=== PATIENT | female | born 1955 | race Caucasian/White ===

== ENCOUNTER 2018-09-17 18:51 | Emergency (ER) | payer MEDICAID ==
[~2018-09-17] VITALS: Ht 167.6 cm; Wt 91.6 kg
[~2018-09-17 18:51] MED LIST: METFORMIN500 MG PO; [UNRECOGNIZED DRUG - SUPPLY]
[2018-09-17 19:00] VITALS: Ht 167.6 cm; Wt 91.6 kg
[2018-09-17 21:01] VITALS: BP 193/106
== END 2018-09-17 21:01 | disposition home or self-care (01) ==
LOC: ED 18:51
DX: S76.911A Strain of unspecified muscles, fascia and tendons at thigh level, right thigh, initial encounter (principal); J45.909 Unspecified asthma, uncomplicated; I10 Essential (primary) hypertension; E11.9 Type 2 diabetes mellitus without complications; E78.00 Pure hypercholesterolemia, unspecified; X58.XXXA Exposure to other specified factors, initial encounter; Y93.89 Activity, other specified; Y92.89 Other specified places as the place of occurrence of the external cause; Y99.8 Other external cause status
CPT/HCPCS: 82962; J1885; Q0092

== ENCOUNTER 2019-03-04 01:56 | Inpatient (IN) | payer MEDICAID ==
[~2019-03-04] VITALS: Ht 167.6 cm; Wt 85.3 kg
--- NOTE | 2019-03-04 02:53 | NUR ---
PATIENT SEEN WITH COMPLAINT OF ABDOMINAL PAIN X 3 DAYS. SUPERVISOR RUBBER COVERING AT THE BEDSIDE DRAWING BLOOD.
[2019-03-04 03:01] LABS: BASOPHIL % 0.5 % (0-2); PLATELET COUNT 349 x10^3mcL (130-400)
[2019-03-04 03:02] LABS: RED CELL DISTRIBUTION WIDTH 15.7 % (11.5-14.5)
--- NOTE | 2019-03-04 03:19 | NUR ---
SALINE LOCK INSERTED, PATIENT MEDICATED WITH ZOFRAN AND TORADOL. FLUID BOLUS IS INFUSING.
[2019-03-04 04:00] LABS: CALCIUM 9.6 mg/dL (8.5-10.1); CARBON DIOXIDE 20.9 mmol/L (21-32); CREATININE SERUM 3.1 mg/dL (0.6-1.0); POTASSIUM SERUM 5.1 mmol/L (3.5-5.1)
[2019-03-04 04:04] LABS: ALBUMIN 2.9 g/dL (3.4-5.0); BILIRUBIN TOTAL 0.12 mg/dL (0.20-1.00); TOTAL PROTEIN, SERUM 7.1 g/dL (6.4-8.2)
--- NOTE | 2019-03-04 04:09 | NUR ---
PATIENT AMBULATED TO THE BATHROOM. AND BACK TO THE ROOM. NO COMPLAINT .
[2019-03-04] MEDS ORDERED: NOR10 PO (04:49)
[2019-03-04] MEDS ORDERED: D-20001 TAB PO (04:50)
[2019-03-04] MEDS ORDERED: LIPI20 PO (04:50)
[2019-03-04] MEDS ORDERED: ZESTRIL40 MG PO (04:51)
[2019-03-04] MEDS ORDERED: TOPROL XL25 MG PO (04:51)
[2019-03-04 05:02] LABS: microscopic required? YES; urine erythrocyte 1+ (NEGATIVE)
--- NOTE | 2019-03-04 05:02 | NUR ---
REPORT WAS GIVEN TO JHONNY. PATIENT TRANSPORTED TO ROOM 204B.
--- NOTE | 2019-03-04 05:15 | NUR ---
PT TRANSFERRED TO MED/SURG BED 204B VIA WHEELCHAIR WITH EMT WILIAM AT PT SIDE. PT A&OX4,NO ACUTE DISTRESS NOTED, RESP EVEN AND UNLABORED, TRANSFERRED WITHOUT INCIDENCE.
[2019-03-04 05:26] VITALS: BP 168/81
--- NOTE | 2019-03-04 05:42 | NUR ---
ADMITTED A 63 YEARS OLD FEMALE AWAKE, ALERT AND ORIENTED CAME IN VIA WHEELCHAIR ACCOMPANIED BY ER NURSE AND GRANDSON. WITH C/O GENERALIZED ABDOMINAL PAIN ,DYSURIA AND BILATERAL EYE PAIN. MEDICATED INER WITH TORADOL 30MG IVP AND ROCEPHIN IVPB GIVEN. KEPT IN COMFORT AND ORIENTED PATIEN TTO ROOM AND DEVICES. WITH ADMISSION ORDERS AND TO CARRY OUT. WILL ENDORSE CONTINOUS CARE TO AM SHIFT.
[2019-03-04 06:48] LABS: PHOSPHOROUS 5.3 mg/dL (2.5-4.9)
[2019-03-04 06:53] LABS: CHOLESTEROL/HDL RATIO 4.8
--- NOTE | 2019-03-04 07:30 | NUR ---
US STRING CUTTER AT BEDSIDE FOR US RENAL.
[2019-03-04 08:00] LABS: T3 TOTAL 1.21 ng/mL
[2019-03-04 08:48] LABS: FREE T4 1.07 ng/dL (0.76-1.46); FREE THYROXINE INDEX 2.2 ug/dL (1.4-4.5); T4(THYROXINE) 5.9 ug/dL (4.7-13.3)
[2019-03-04 08:54] VITALS: BP 115/73
--- NOTE | 2019-03-04 10:00 | NUR ---
ADMINISTERED MEDICATIONS PER MAR, PATIENT FAMILY AT BEDSIDE, CALL LIGHT WITHIN REACH
--- NOTE | 2019-03-04 12:53 | NUR ---
Discount pharmacy card and list to low cost medical clinics given to patient by Alex Solis.
--- NOTE | 2019-03-04 14:43 | NUR ---
LAB CONTACTED STAFF TO REPORT THAT PATIENT MRSA SWAB WAS NOT RECEIVED. RESWABED PATIENT AT THIS TIME TO SEND TO LAB.
[2019-03-04 15:11] LABS: CREATININE UR 37.6 mg/dL
--- NOTE | 2019-03-04 16:19 | NUR ---
ADMNISTERED MEDICATION PER NOV. BS ERSULT WAS 120 NO COVERAGE NEEDED PER SLIDING SCALE
[2019-03-04 16:41] VITALS: BP 156/75
--- NOTE | 2019-03-04 19:51 | NUR ---
PT RECIEVED AAO [place] KORE[place] SPEAKING ONLY WITH FAMILY AT THE BEDSIDE,REG RESP NO SOB V/S STABLE,IV INFUSING WELL WITH THE SITE PATENT AND INTACT,KEPT CLEAN AND DRY TO TOUCH,MADE COMFORTABLE IN BED,CALL LIGHT EASY REACHED AND WILL CONTINUE TO MONITOR.
[2019-03-04 20:42] VITALS: BP 148/68
[2019-03-04 23:20] VITALS: Ht 167.6 cm; Wt 85.3 kg
--- NOTE | 2019-03-05 01:12 | NUR ---
PT SLEEPING SOUNDLY AND WILL CONTINUE TO MONITOR.
[2019-03-05 05:32] VITALS: BP 166/70
[2019-03-05 06:22] LABS: BASOPHIL % 0.4 % (0-2); PLATELET COUNT 300 x10^3mcL (130-400)
--- NOTE | 2019-03-05 06:23 | NUR ---
PT HAD A RESTING NIGHT NO CHANGE AT THIS TIME,WILL CONTINUE TO MONITOR.
[2019-03-05 06:46] LABS: CALCIUM 8.7 mg/dL (8.5-10.1); CARBON DIOXIDE 16.8 mmol/L (21-32); CREATININE SERUM 2.7 mg/dL (0.6-1.0); PHOSPHOROUS 5.7 mg/dL (2.5-4.9)
[2019-03-05 06:54] LABS: IRON 18 ug/dL (50-170); TOTAL IRON BINDING CAPACITY 225 ug/dL (250-450)
--- NOTE | 2019-03-05 07:11 | NUR ---
K+ LEVEL THIS AM IS 6.0 DR [place] HAPPEN TO BE ON THE FLOOR MADE AWARE OF THAT RESULT WELL THE AM NURSE WAS,WILL CONTINUE TO MONITOR.
[2019-03-05 07:20] LABS: RED CELL DISTRIBUTION WIDTH 16.3 % (11.5-14.5)
--- NOTE | 2019-03-05 07:30 | NUR ---
RECEIVED HAND OFF REPORT FROM RANDEE PAEZ. PATIENT FOUND RESTING IN BED OPENED EYES WHEN I ENTERED THE ROOM. FAMILY AT BEDSIDE, PATIENT NO COMPLAINING OF PAIN OR DISCOMFORT, IV TO RIGHT HAND INTACT WITH NS @100. [facility] NURSE REPORTED POTASSIUM VALUE OR 6.[address] SULTANA AT NURSES STATION. CALL LIGHT WITHIN REACH OF PATIENT
--- NOTE | 2019-03-05 08:18 | NUR ---
SPOKE WITH PHARMACIST ABOUT VELTRESSA ORDER. PHARAMCIST STATED TO GIVE VALTRESSA AND IV MEDICAIONS BUT HOLD ANY PO MEDICATIONS UNTIL 3 HOURS AFTER VELTRESSA HAS BEEN ADMINISTERED. ADMINISTERED MEDICATION TO PATIENT WITH NO INCIDENT. PATIENT CALL LIGHT WITHIN REACH
[2019-03-05 09:42] VITALS: BP 152/70
--- NOTE | 2019-03-05 12:00 | NUR ---
ADMINISTERED MORNING MEDICATIONS. DELAYED DUE TO POTASSIUM BEING 6.0 AND NEEDING VALTASSA. PER PHARAMCIST PO MEDICATIONS COULD NOT BE GIVEN WITHIN 3 HOURS.
--- NOTE | 2019-03-05 17:10 | NUR ---
FOUND PATIENT SITTING UP TALKING WITH FAMILY MEMBERS. PATIENT DENIES PAIN, STATES SHE HAS NOT HAD A BOWEL MOVEMENT FOR 5 DAYS AND CAN HEAR AND FEEL HER INTESTINES MOVING. PATIENT DOES HAVE ACTIVE BOWEL SOUNDS. DENEIS PAINFUL URINATION. THERE WAS OUTSIDE FOOD AT BEDSIDE, AND PATIENT ADMITS TO EATING THE FOOD HER FAMILY BROUGHT HER. EDUCATED PATIENT THAT WITHOUT A PHYSCIAN ORDER, PATIENT SHOULD NOT BE EATING OUTSIDE FOOD, ESPECIALLY DUE TO HER DIABETES. PATIENT VERBALIZED UNDERSTANDING. NO OTHER COMPLAINTS AT THIS TIME, CALL LIGHT WITHIN REACH
[2019-03-05 17:11] VITALS: BP 142/65
--- NOTE | 2019-03-05 19:36 | NUR ---
RECEIVED PT FROM DAY SHIFT RN. PT AAOX4 DENIES HEADACHE OR DIZZINESS. BREATHING EVEN AND UNLABORED WITH NO SOB NOTED. MED SURG PT DENIES CHEST PAIN OR PRESSURE. IV RH PATENT, INFUSING WELL. PT AMBULATORY. ABD DISTENDED, ACTIVE BOWEL SOUNDS, DENIES DISCOMFORT AT THIS TIME, DENIES N/V. CALL BUTTON WITHIN REACH. NO SIGNS OF DISTRESS NOTED. SAFETY PRECAUTIONS IN PLACE. WILL CONTINUE TO MONITOR.
[2019-03-05 20:58] VITALS: BP 157/64
--- NOTE | 2019-03-05 21:48 | NUR ---
PT REPORTED HAVING A HEADACHE, MEDICATED PER EMAR. WILL MONITOR.
--- NOTE | 2019-03-05 23:30 | NUR ---
DR JESUS MADE AWARE K 6.0, PT HAS NOT HAVE A BM. PER DR JESUS TO WAIT FOR MORNING LABS TO RECHECK POTASSIUM LEVEL.
--- NOTE | 2019-03-06 00:24 | NUR ---
PT RESTING, BREATHING EVEN AND UNLABORED. NO SIGNS OF DISTRESS NOTED. IV PATENT, INFUSING WELL. CALL BUTTON WITHIN REACH. WILL CONTINUE TO MONITOR.
--- NOTE | 2019-03-06 03:25 | NUR ---
PT RESTING, BREATHING EVEN AND UNLABORED. NO SIGNS OF DISTRESS NOTED. CALL BUTTON WITHIN REACH. SAFETY PRECAUTIONS IN PLACE. DAUGHTER AT BEDSIDE. WILL CONTINUE TO MONITOR.
--- NOTE | 2019-03-06 06:16 | NUR ---
PT SLEPT MOST OF THE NIGHT WITH NO SIGNS OF DISTRESS. BREATHING EVEN AND UNLABORED. IV PATENT, INFUSING WELL WITH NO SIGNS OF INFILTRATION NOTED. MEDICATED PER EMAR. PT DENIES DISCOMFORT OR DISTRESS. CALL BUTTON WITHIN REACH. SAFETY PRECAUTIONS IN PLACE. WILL CONTINUE TO MONITOR AND ENDORSE CARE TO DAY SHIFT RN.
[2019-03-06 06:18] VITALS: BP 144/78
[2019-03-06 06:44] LABS: BASOPHIL % 0.6 % (0-2); PLATELET COUNT 299 x10^3mcL (130-400)
[2019-03-06 06:48] LABS: CALCIUM 8.2 mg/dL (8.5-10.1); CARBON DIOXIDE 19.5 mmol/L (21-32); CREATININE SERUM 2.5 mg/dL (0.6-1.0); MAGNESIUM 1.8 mg/dL (1.8-2.4); PHOSPHOROUS 4.7 mg/dL (2.5-4.9); POTASSIUM SERUM 5.5 mmol/L (3.5-5.1)
[2019-03-06 07:27] LABS: RED CELL DISTRIBUTION WIDTH 16.4 % (11.5-14.5)
--- NOTE | 2019-03-06 07:35 | NUR ---
PT BREATHING EVEN AND UNLABORED. NO SIGNS OF DISTRESS NOTED. ENDORSED CARE TO DAY SHIFT RN, ALL QUESTIONS ADDRESSED.
--- NOTE | 2019-03-06 07:35 | NUR ---
SBAR RECEIVED AND PATIENT SEEN ASLEEP. NS AT 100CC/ HR INFUSING PERIPHERALLY. DAUGHTER AT BEDSIDE. BED LOW AND LOCKED.
[2019-03-06 08:06] LABS: microalbumin:creatinine ratio 2742.8 (0.0-30.0)
[2019-03-06 09:00] VITALS: BP 152/68
--- NOTE | 2019-03-06 12:13 | NUR ---
DAUGHTER VISITING. PATIENT NOT IN ANY DISTRESS. CALL [place] WITHIN REACH.
[2019-03-06 13:11] VITALS: BP 152/68
--- NOTE | 2019-03-06 14:47 | NUR ---
PLACED ON CONTACT ISOLATION PER PROTOCOL BASED ON URINE CULTURE RESULTS.
[2019-03-06 17:30] VITALS: BP 169/77
--- NOTE | 2019-03-06 18:00 | NUR ---
GIVEN DULCOLAX PO FOR CONSTIPATION. GOOD RESULT.
--- NOTE | 2019-03-06 19:26 | NUR ---
HANDOFF REPORT GIVEN TO BRENDA BEE.
--- NOTE | 2019-03-06 19:35 | NUR ---
RECEIVED PT FROM DAY SHIFT RN. PT AAOX4 DENIES HEADACHE OR DIZZINESS. BREATHING EVEN AND UNLABORED WITH NO SOB NOTED. MED SURG PT DENIES CHEST PAIN OR PRESSURE. IV RH PATENT, INFUSING WELL. PT AMBULATORY. ABD DISTENDED, ACTIVE BOWEL SOUNDS, DENIES DISCOMFORT AT THIS TIME, DENIES N/V. CALL BUTTON WITHIN REACH. NO SIGNS OF DISTRESS NOTED. SAFETY PRECAUTIONS IN PLACE. CONTACT ISOLATION. DAUGHTER AT BEDSIDE. WILL CONTINUE TO MONITOR.
--- NOTE | 2019-03-06 20:54 | NUR ---
PT REPORTED HAVING A HEADACHE, MEDICATED PER EMAR. WILL CONTINUE TO MONITOR.
[2019-03-06 22:45] VITALS: BP 160/67
--- NOTE | 2019-03-06 22:50 | NUR ---
PER DR THELMA ZULETA TO DISCHARGE PATIENT IF POTASSIUM LEVEL IS NORMAL IN THE MORNING.
--- NOTE | 2019-03-07 | NUR ---
PT BREATHING EVEN AND UNLABORED WITH NO SOB NOTED. NO SIGNS OF ACUTE DISTRESS NOTED. DAUGHTER AT BEDSIDE. CALL BUTTON WITHIN REACH. WILL CONTINUE TO MONITOR.
--- NOTE | 2019-03-07 02:12 | NUR ---
ROUNDS MADE. PT BREATHING EVEN AND UNLABORED WITH NO SOB NOTED. NO SIGNS OF ACUTE DISTRESS NOTED. DAUGHTER AT BEDSIDE. CALL BUTTON WITHIN REACH. WILL CONTINUE TO MONITOR.
[2019-03-07 06:05] VITALS: BP 120/66
[2019-03-07 06:07] LABS: BASOPHIL % 0.3 % (0-2); PLATELET COUNT 317 x10^3mcL (130-400)
--- NOTE | 2019-03-07 06:18 | NUR ---
PT BREATHING EVEN AND UNLABORED. PT SLEPT MOST OF THE NIGHT WITH NO SIGNS OF DISTRESS. PT AMBULATORY WITH BRP. MEDICATED PER EMAR. PT DENIES ANY PAIN. NO SIGNS OF ACUTE DISTRESS NOTED. CALL BUTTON WITHIN REACH. WILL CONTINUE TO MONITOR AND ENDORSE CARE TO DAY SHIFT RN.
[2019-03-07 06:19] LABS: CALCIUM 8.5 mg/dL (8.5-10.1); CARBON DIOXIDE 19.8 mmol/L (21-32); CREATININE SERUM 2.3 mg/dL (0.6-1.0); POTASSIUM SERUM 5.3 mmol/L (3.5-5.1)
[2019-03-07 07:02] LABS: RED CELL DISTRIBUTION WIDTH 16.4 % (11.5-14.5)
--- NOTE | 2019-03-07 07:35 | NUR ---
PT RESTING, BREATHING EVEN AND UNLABORED. NO SIGNS OF DISTRESS NOTED. ENDORSED CARE TO DAY SHIFT RN, ALL QUESTIONS ADDRESSED.
[2019-03-07] MEDS ORDERED: NITROFURANTOIN100 MG PO (07:54)
--- NOTE | 2019-03-07 07:55 | NUR ---
BAM POLK AWARE OF PATIENT'S POTASSIUM LEVEL = 5.3 TODAY. ORDER OF DISCHARGE TO HOME TODAY IF OK WITH MARINE FIRER.
--- NOTE | 2019-03-07 08:00 | NUR ---
RECEIVED PATIENT A/A/OX3; ITALIAN SPEAKING. NO RESP DISTRESS ON RA. DENIED CHEST PAIN. OBESITY. FINISHED 100% OF RENAL DIET BRAKFAST. VOID VIA BRP. DENIED DYSURIA NOW. GENERAL WEAKNESS. IVHL'D TO R HAND W/ 24G NEEDLE. DENIED PAIN. CALL LIGHT IN REACH. DAUGHTERS AT BED SIDE.
[2019-03-07 14:36] VITALS: BP 152/68
[2019-03-07] MEDS ORDERED: METOPROLOL TART25 M1 PO (14:41)
--- NOTE | 2019-03-07 15:00 | NUR ---
DR. Pablo HERNANDEZ CAME TO SEE PATIENT. DIETITION CONSULTATION GIVEN FOR RENAL/CCHO DIET. VELTASSA 8.5GM PO GIVEN FOR POTASSIUM 5.3 TODAY. ORDER OF TO FOLLOW UP WITH DR HERNANDEZ IN 2 WEEKS ADDED TO DISCHARGE INSTRUCTION.
--- NOTE | 2019-03-07 15:15 | NUR ---
Nutrition Note: Diet education provided on Low and high food sources of potassium, portion control, high fiber foods, low sodium and diabetic diet. [facility] handout on 'Acute Renal Injury' that included potassium food sources was provided both in Romanian and Uzbek. Patient' s daughter helped with maltese translation. Patient verbalized understanding and did not have any questions at this time. Per RN Odette pateint is to be D/C today.
--- NOTE | 2019-03-07 16:25 | NUR ---
D/C TO HOME PER ORDER. INSTRUCTION GIVEN. IV D/C'D. CONDITION STABLE.
== END 2019-03-07 16:25 | disposition home or self-care (01) | DRG 469 ==
LOC: ED 01:56 → MU 04:27
PROVIDERS: Emergency Medicine; Internal Medicine; ADMIT Internal Medicine
DX: N17.0 Acute kidney failure with tubular necrosis (principal); E11.22 Type 2 diabetes mellitus with diabetic chronic kidney disease; E44.0 Moderate protein-calorie malnutrition; E11.3599 Type 2 diabetes mellitus with proliferative diabetic retinopathy without macular edema, unspecified eye; N39.0 Urinary tract infection, site not specified; E87.5 Hyperkalemia; N28.1 Cyst of kidney, acquired; I12.9 Hypertensive chronic kidney disease with stage 1 through stage 4 chronic kidney disease, or unspecified chronic kidney disease; N18.4 Chronic kidney disease, stage 4 (severe); R80.9 Proteinuria, unspecified; D64.9 Anemia, unspecified; E78.5 Hyperlipidemia, unspecified; J45.909 Unspecified asthma, uncomplicated; Z68.30 Body mass index [BMI] 30.0-30.9, adult; Z79.84 Long term (current) use of oral hypoglycemic drugs; Z79.4 Long term (current) use of insulin
CPT/HCPCS: 82962; 83880; 84439; G0378; J0696; J1885; J2405; J7030; Q0092

== ENCOUNTER 2019-11-14 22:06 | Inpatient (IN) | payer MEDICAID ==
[~2019-11-14] VITALS: Ht 162.6 cm; Wt 73.0 kg
[~2019-11-14 22:06] MED LIST changes: +D-20001 TAB PO; +LIPI20 PO; +METOPROLOL TART25 M1 PO; +NITROFURANTOIN100 MG PO; +NOR10 PO; +TOPROL XL25 MG PO; +ZESTRIL40 MG PO
[2019-11-14 22:20] VITALS: Ht 162.6 cm; Wt 73.0 kg
[2019-11-15] VITALS (9 sets, daily range): BP systolic 125–161; BP diastolic 57–79
[2019-11-15 01:08] LABS: POTASSIUM SERUM 5.1 mmol/L (3.5-5.1)
[2019-11-15 01:09] LABS: CARBON DIOXIDE 16.7 mmol/L (21-32); CREATININE SERUM 3.6 mg/dL (0.6-1.0)
[2019-11-15 01:10] LABS: CALCIUM 7.8 mg/dL (8.5-10.1)
[2019-11-15 01:14] LABS: BASOPHIL % 0.3 % (0-2); PLATELET COUNT 217 x10^3mcL (130-400); RED CELL DISTRIBUTION WIDTH 16.5 % (11.5-14.5)
[2019-11-15 01:19] LABS: T3 TOTAL 0.67 ng/mL
[2019-11-15 01:21] LABS: ERYTHROCYTE SED RATE 88 mm/hr (0-30)
[2019-11-15 01:31] LABS: FREE T4 1.01 ng/dL (0.76-1.46); FREE THYROXINE INDEX 1.8 ug/dL (1.4-4.5); T4(THYROXINE) 4.6 ug/dL (4.7-13.3)
[2019-11-15 01:34] LABS: TOTAL PROTEIN, SERUM 6.8 g/dL (6.4-8.2)
[2019-11-15 01:35] LABS: ALBUMIN 2.7 g/dL (3.4-5.0); BILIRUBIN TOTAL 0.2 mg/dL (0.20-1.00); C REACTIVE PROTEIN 6.4 mg/dL (<=0.9)
[2019-11-15 01:38] LABS: CK-MB 0.9 ng/mL (0-3.6)
[2019-11-15] MEDS ORDERED: FEOSOL65 M1 PO (02:52)
[2019-11-15 03:17] LABS: CHOLESTEROL/HDL RATIO 3.3
[2019-11-15 06:38] LABS: IRON 8 ug/dL (50-170); TOTAL IRON BINDING CAPACITY 192 ug/dL (250-450)
[2019-11-15 06:46] LABS: CALCIUM 7.6 mg/dL (8.5-10.1); CARBON DIOXIDE 16.7 mmol/L (21-32); CREATININE SERUM 3.7 mg/dL (0.6-1.0)
[2019-11-15 08:18] LABS: BASOPHIL % 0.4 % (0-2); PLATELET COUNT 204 x10^3mcL (130-400); RED BLOOD CELLS 2.41 M/mm3 (4.10-5.10)
[2019-11-15 08:23] LABS: RED CELL DISTRIBUTION WIDTH 16.8 % (11.5-14.5)
[2019-11-15 09:55] LABS: rbc morphology (normal/abnorm) ABNORMAL (NORMAL)
[2019-11-15 13:14] LABS: UA SPECIFIC GRAVITY 1.025 (1.005-1.035); microscopic required? YES; urine erythrocyte 2+ (NEGATIVE)
[2019-11-15 15:43] LABS: UA SPECIFIC GRAVITY 1.025 (1.005-1.035); microscopic required? YES; urine erythrocyte 2+ (NEGATIVE)
[2019-11-15 15:58] LABS: CREATININE UR 78.6 mg/dL
[2019-11-16 06:00] VITALS: BP 139/82
[2019-11-16 06:57] LABS: BASOPHIL % 0.5 % (0-2); PLATELET COUNT 185 x10^3mcL (130-400)
[2019-11-16 07:02] LABS: RED CELL DISTRIBUTION WIDTH 16.6 % (11.5-14.5)
[2019-11-16 07:07] LABS: CALCIUM 7.5 mg/dL (8.5-10.1); CARBON DIOXIDE 17.7 mmol/L (21-32); MAGNESIUM 1.7 mg/dL (1.8-2.4); PHOSPHOROUS 5.2 mg/dL (2.5-4.9); POTASSIUM SERUM 5.1 mmol/L (3.5-5.1)
[2019-11-16 08:01] VITALS: BP 143/75
[2019-11-16 12:11] VITALS: BP 146/66
[2019-11-16 16:22] VITALS: BP 139/63
[2019-11-16 20:30] VITALS: BP 148/62
[2019-11-17 05:52] VITALS: BP 140/67
[2019-11-17 06:35] LABS: BASOPHIL % 0.1 % (0-2); PLATELET COUNT 207 x10^3mcL (130-400)
[2019-11-17 06:59] LABS: RED CELL DISTRIBUTION WIDTH 17.1 % (11.5-14.5)
[2019-11-17 07:14] LABS: CARBON DIOXIDE 15.8 mmol/L (21-32); CREATININE SERUM 3.9 mg/dL (0.6-1.0)
[2019-11-17 08:13] LABS: POTASSIUM SERUM 6.1 mmol/L (3.5-5.1)
[2019-11-17 08:33] LABS: MAGNESIUM 1.9 mg/dL (1.8-2.4); PHOSPHOROUS 4.4 mg/dL (2.5-4.9)
[2019-11-17 08:44] VITALS: BP 166/76
[2019-11-17 12:14] VITALS: BP 149/67
[2019-11-17 13:09] LABS: CALCIUM 7.8 mg/dL (8.5-10.1); CARBON DIOXIDE 18.4 mmol/L (21-32); CREATININE SERUM 3.9 mg/dL (0.6-1.0)
[2019-11-17 13:12] LABS: POTASSIUM SERUM 5.6 mmol/L (3.5-5.1)
[2019-11-17 16:47] VITALS: BP 115/64
[2019-11-17 20:09] VITALS: BP 153/76
[2019-11-18 06:05] VITALS: BP 153/76
[2019-11-18 06:41] LABS: BASOPHIL % 0.3 % (0-2); PLATELET COUNT 218 x10^3mcL (130-400)
[2019-11-18 06:49] LABS: RED CELL DISTRIBUTION WIDTH 16.6 % (11.5-14.5)
[2019-11-18 06:59] LABS: CALCIUM 8.1 mg/dL (8.5-10.1); CARBON DIOXIDE 17.6 mmol/L (21-32); CREATININE SERUM 3.7 mg/dL (0.6-1.0); MAGNESIUM 1.8 mg/dL (1.8-2.4); PHOSPHOROUS 4.4 mg/dL (2.5-4.9)
[2019-11-18 07:20] LABS: POTASSIUM SERUM 5.6 mmol/L (3.5-5.1)
[2019-11-18 08:17] VITALS: BP 141/60
[2019-11-18 13:29] VITALS: BP 122/83
[2019-11-18 16:23] VITALS: BP 110/68
[2019-11-18 20:57] VITALS: BP 150/68
[2019-11-19 05:45] VITALS: BP 141/60
[2019-11-19 07:07] LABS: PLATELET COUNT 227 x10^3mcL (130-400)
[2019-11-19 07:12] LABS: CALCIUM 8.1 mg/dL (8.5-10.1); CARBON DIOXIDE 19.9 mmol/L (21-32); CREATININE SERUM 3.5 mg/dL (0.6-1.0); POTASSIUM SERUM 5.1 mmol/L (3.5-5.1)
[2019-11-19 07:27] LABS: BASOPHIL % 0 % (0-2); RED CELL DISTRIBUTION WIDTH 16.5 % (11.5-14.5)
[2019-11-19 07:44] LABS: MAGNESIUM 1.8 mg/dL (1.8-2.4); PHOSPHOROUS 4.6 mg/dL (2.5-4.9)
[2019-11-19 08:09] VITALS: BP 143/42
[2019-11-19 12:14] VITALS: BP 139/77
[2019-11-19 16:04] VITALS: BP 144/64
[2019-11-19 20:50] VITALS: BP 147/61
[2019-11-20 05:40] VITALS: BP 129/60
[2019-11-20 08:55] VITALS: BP 129/68
[2019-11-20 11:01] LABS: PLATELET COUNT 260 x10^3mcL (130-400); RED CELL DISTRIBUTION WIDTH 16.9 % (11.5-14.5)
[2019-11-20 11:48] LABS: CALCIUM 8.1 mg/dL (8.5-10.1); CARBON DIOXIDE 21.2 mmol/L (21-32); CREATININE SERUM 3.6 mg/dL (0.6-1.0); POTASSIUM SERUM 4.8 mmol/L (3.5-5.1)
[2019-11-20 12:26] LABS: BAND NEUTROPHIL 0 % (0-10); BASOPHIL 0 % (0-2); MONOCYTE 10 % (0-7); SEGMENTED NEUTROPHILS 84 % (37-75); rbc morphology (normal/abnorm) ABNORMAL (NORMAL)
[2019-11-20 12:41] VITALS: BP 151/69
[2019-11-20 16:20] VITALS: BP 151/69
[2019-11-20 16:45] VITALS: BP 136/61
[2019-11-20 21:10] VITALS: BP 146/60
[2019-11-21 05:38] VITALS: BP 131/60
[2019-11-21 07:33] LABS: BASOPHIL % 0.1 % (0-2); PLATELET COUNT 259 x10^3mcL (130-400)
[2019-11-21 07:51] LABS: CALCIUM 7.7 mg/dL (8.5-10.1); CARBON DIOXIDE 22.9 mmol/L (21-32); CREATININE SERUM 3.8 mg/dL (0.6-1.0); POTASSIUM SERUM 5.4 mmol/L (3.5-5.1)
[2019-11-21 08:34] VITALS: BP 164/75
[2019-11-21 12:41] VITALS: BP 148/76
[2019-11-21 16:52] VITALS: BP 154/65
[2019-11-21 19:25] VITALS: BP 151/60
[2019-11-22 05:53] VITALS: BP 150/69
[2019-11-22 06:51] LABS: PLATELET COUNT 268 x10^3mcL (130-400)
[2019-11-22 07:06] LABS: CALCIUM 8.3 mg/dL (8.5-10.1); CARBON DIOXIDE 22.8 mmol/L (21-32); CREATININE SERUM 3.9 mg/dL (0.6-1.0); POTASSIUM SERUM 5.3 mmol/L (3.5-5.1)
[2019-11-22 07:32] LABS: BASOPHIL % 0 % (0-2); RED CELL DISTRIBUTION WIDTH 16.4 % (11.5-14.5)
[2019-11-22 08:44] VITALS: BP 148/66
[2019-11-22] MEDS ORDERED: CIPRO500 MG PO (11:34)
[2019-11-22] MEDS ORDERED: OSELTAMIVIR PHO30 MG PO (11:35)
[2019-11-22 12:59] VITALS: BP 108/76; BP 150/76
[2019-11-22 13:10] VITALS: BP 150/76
== END 2019-11-22 14:38 | disposition home or self-care (01) | DRG 720 ==
LOC: ED 22:06 → DU 11-15 01:48
PROVIDERS: Internal Medicine; Specialist; ADMIT Family Medicine
PROC: 30233N1 Transfusion of Nonautologous Red Blood Cells into Peripheral Vein, Percutaneous Approach (ICD-10-PCS; principal; 2019-11-15)
DX: A41.9 Sepsis, unspecified organism (principal); N17.0 Acute kidney failure with tubular necrosis; E87.2 Acidosis; E44.0 Moderate protein-calorie malnutrition; J09.X2 Influenza due to identified novel influenza A virus with other respiratory manifestations; E11.22 Type 2 diabetes mellitus with diabetic chronic kidney disease; E87.1 Hypo-osmolality and hyponatremia; M62.82 Rhabdomyolysis; E11.65 Type 2 diabetes mellitus with hyperglycemia; E87.5 Hyperkalemia; E86.0 Dehydration; N39.0 Urinary tract infection, site not specified; B96.20 Unspecified Escherichia coli [E. coli] as the cause of diseases classified elsewhere; I12.9 Hypertensive chronic kidney disease with stage 1 through stage 4 chronic kidney disease, or unspecified chronic kidney disease; N18.9 Chronic kidney disease, unspecified; D63.1 Anemia in chronic kidney disease; E78.5 Hyperlipidemia, unspecified; J45.909 Unspecified asthma, uncomplicated; Z91.14 Patient's other noncompliance with medication regimen; Z22.322 Carrier or suspected carrier of Methicillin resistant Staphylococcus aureus; Z79.1 Long term (current) use of non-steroidal anti-inflammatories (NSAID); Z79.84 Long term (current) use of oral hypoglycemic drugs; Z68.27 Body mass index [BMI] 27.0-27.9, adult
CPT/HCPCS: 36600; 82962; 83880; 84439; 87804; 97116-GP; G0378; J0610; J0696; J0744; J1815; J1885; J2405; J2920; J2930; J3370; J3490; J7030; J7040; J7050; J7512; P9016; Q0092; Q0163